=== PATIENT | female | born 1945 | race African-American/Black ===

== ENCOUNTER 2016-10-17 16:13 | Observation (INO) | payer MEDICARE, OTHER ==
--- NOTE | ~2016-10-17 | HP ---
History And Physical [facility] [id number] [place]. [address] NAME: KYLIE MERCER : 43 STATUS : ADM Jayla PAT#: [id number] AGE: 71 ADM/REG DATE : 10/17/16 MR#: [id number] REPORT SERV DATE: 10/18/16 DICTATED BY: DATE: REPORT STATUS : Draft TRANSCRIBED BY: MODL DATE: 10/18/16 DATE OF ADMISSION: 10/17/2016 She also sees a counselor at law that she does not know the name of. CHIEF COMPLAINT: Neck and back pain along with palpitations. HISTORY OF PRESENT ILLNESS: This is a very pleasant 71-year-old female without a history of coronary artery disease, who reported to have bilateral upper arm pain that radiated to her neck and to her back. She also felt like her heart was "fluttering" and she also had some nausea and dizziness during her event. She denies having any chest pain or pressure, shortness of breath, diaphoresis, or any syncopal episodes during her event. She reports to have a nonproductive cough that is evident on the room. No other complaints. Today, she has no complaints and feels like all of her events have resolved. Currently, no chest pain or pressure. No shortness of breath, nausea, vomiting, or diaphoresis. The patient denies any personal history of myocardial infarction, stroke, DVTs, or pulmonary embolus. The patient denies any recent illness, fever, or chills. No syncopal episodes. The patient denies PND or orthopnea. PAST MEDICAL HISTORY: 1. Acute colitis. 2. Hypertension. 3. Hyperlipidemia. 4. Thrombocytosis. 5. COPD. 6. Iron deficiency anemia. 7. Gastritis. 8. Diverticulosis. 9. Glaucoma. SURGICAL HISTORY: Hysterectomy. 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 She is and she has three children. She smokes about half a pack per day and has been smoking half a pack per day intermittently for thirty five years. Denies any alcohol use. Denies any illicit drug use. FAMILY HISTORY: She denies her parents having any cardiac history. She does report that her mother had pancreatic cancer and at the age of 85, and her father having liver cancer and in his 60s. REVIEW OF SYSTEMS: A 14-point review of systems was performed significant for HPI, no other contributory diagnoses are identified. History And Physical [address] [place]. [address] NAME: KYLIE MERCER : 43 STATUS : ADM Jayla PAT#: [id number] AGE: 71 ADM/REG DATE : 10/17/16 MR#: [id number] REPORT SERV DATE: 10/18/16 DICTATED BY: DATE: REPORT STATUS : Draft TRANSCRIBED BY: MODL DATE: 10/18/16 ALLERGIES: NO KNOWN ALLERGIES. HOME MEDICATIONS: Elavil 10 mg p.o. at bedtime, aspirin 81 p.o. every morning, Lipitor 20 p.o. at bedtime, ferrous sulfate 325 after breakfast, Hydrea 500 mg p.o. every 48 hours, Hydrea 1000 mg p.o. every 48 hours, Cozaar 100 mg p.o. with lunch, Maxzide 25 one tablet p.o. every morning. I have consulted the registered nurse to call the patient's primary care physician and confirm and verify the patient's home medication list due to the patient stating she is unsure if that is exactly what she takes at this time. PHYSICAL EXAMINATION: VITAL SIGNS: Blood pressure 145/65, heart rate 56, temperature 98.1, respirations 18, O2 saturation 96% on room air. GENERAL: Cooperative, in no apparent distress. HEENT: Head normocephalic, anicteric. Normal EOM. PERRLA. No xanthelasma. Nares patent. Moist mucous membranes. NECK: Trachea midline. No thyromegaly, JVD or bruits. RESPIRATORY: Clear to auscultation bilaterally anterior and posterior. Respirations even and unlabored. No wheezes, rhonchi or crackles. CARDIOVASCULAR: Regular rate and rhythm. No murmur, rub or gallop appreciated. No chest wall tenderness to palpation. ABDOMEN: Soft, nontender, nondistended, normal bowel sounds auscultated throughout. No masses or organomegaly. EXTREMITIES: No peripheral edema. DP/PT and radial pulses palpable bilaterally. No clubbing or cyanosis. SKIN: Warm, dry and intact. Normal turgor. No pallor or cyanosis. NEURO/PSYCH: Alert, oriented x3 with no acute distress. Affect appropriate to current situation. LABORATORY DATA: Troponins x2 have been less than 0.02. Sodium 143, potassium 3.5, BUN 9, creatinine 0.87, GFR 77, glucose 118, calcium 9.0, magnesium 2.1. White blood cells 6.2, hemoglobin 11.1, hematocrit 33.4, platelets of 567. INR 1.1. Chest x-ray PA and lateral shows no acute processes, the lungs are clear. No infiltrate or effusion. EKG done on 10/18/2016 at 0320 hours shows sinus bradycardia, 56 with nonspecific T-wave abnormalities. compliance monitor shows sinus rhythm. No ectopy or any arrhythmias noted. ASSESSMENT AND PLAN: 1. Palpitations. No arrhythmia or ectopy noted on patient's EKGs x2 or school lunch monitor. The patient's EKG shows sinus paced sinus rhythm. Troponins x2 have been less than 0.02. The patient's cardiac risk factors include age, hypertension, hyperlipidemia, and tobacco use. The patient has been observed in the CPOU to rule out myocardial infarction with serial enzymes and serial EKGs. We will keep the patient n.p.o. and plan an MPI today due to the patient's cardiac risk factors and symptoms of arm pain radiating to her neck and then to her back. If the stress test is showing low risk or no ischemia, the RN may discharge the patient home. If anything suggestive of ischemia, Cardiology referral will be initiated. The patient will be asked to follow History And Physical [address] [place]. [address] NAME: KYLIE MERCER : 43 STATUS : ADM Jayla PAT#: [id number] AGE: 71 ADM/REG DATE : 10/17/16 MR#: [id number] REPORT SERV DATE: 10/18/16 DICTATED BY: DATE: REPORT STATUS : Draft TRANSCRIBED BY: MODL DATE: 10/18/16 up with her PCP in one or two weeks with all the studies being sent to that office. 2. Back, neck, and arm pain. The patient has denied any chest pain or chest pressure with the symptoms; however, due to her arm pain starting first radiating to her neck and then to her back, we will follow up with a stress test today. The patient denies any numbness or tingling or any other pain currently. 3. Hypertension, appears to be stable, 140s over 60s. The home medication list has been addressed; however, to verify that all of the medications and the dosage is correct, we will get the RN to verify the patient's home medications under PCP. The patient is unsure of some of the names of the medication and the dosages. 4. Hyperlipidemia. The patient is on statin, we will continue that. 5. Thrombocytosis and iron deficiency anemia. The patient will follow up with her counselor at law who she cannot remember the name of, but does have a followup appointment with. 6. Tobacco abuse. We have discussed smoking cessation. The patient reports, she will attempt to stop smoking. EKS/MODL Kiana Jones APN / [id number] CC: GATO Feliciano M.D.
[2016-10-17 13:02] LABS: BASOPHILS 1.8 %; BASOPHILS ABSOLUTE 0.11 10/3/uL (0.0-0.16); EOSINOPHILS 3.9 %; EOSINOPHILS ABSOLUTE 0.24 10/3/uL (0.0-0.53); ER CBC TAT 0 Hrs 08 Mins; HEMATOCRIT 33.4 % (36.0-48.0); HEMOGLOBIN 11.1 g/dL (12.0-16.0); IMMATURE GRANULOCYTES 0.2 %; IMMATURE GRANULOCYTES ABSOLUTE 0.01 10/3/uL (0.0-0.11); LYMPHOCYTES 36.4 %; LYMPHOCYTES ABSOLUTE 2.25 10/3/uL (0.67-4.30); MANUAL DIFF NO %; MEAN CORPUS HGB CONC 33.2 g/dL (32.0-36.0); MEAN CORPUSCULAR HEMOGLOB 33.3 pg (26.0-34.0); MEAN CORPUSCULAR VOLUME 100.3 fL (80-100); MEAN PLATELET VOLUME 9.3 fL (9.2-13.0); MONOCYTES 4.9 %; NEUTROPHILS 52.8 %; NEUTROPHILS ABSOLUTE 3.27 10/3/uL (2.02-8.40); PLATELET COUNT 567 10/3/uL (150-400); RBC DISTRIBUTION WIDTH 13.8 % (12.0-16.0); RED CELL COUNT 3.33 10/6/uL (4.0-5.6); WHITE BLOOD CELLS 6.2 10/3/uL (4.5-10.5)
[2016-10-17 13:10] LABS: INTERNATIONAL NORMAL RATI 1.1 UNITS (-); PARTIAL THROMBO TIME 30.8 SEC (22.5-37.2); PROTIME (NOT ORD) 14.2 SEC (12.0-14.5)
[2016-10-17 13:21] LABS: BUN (BLOOD UREA NITROGEN) 9 MG/DL (6-23); CHEST PAIN PROFILE TAT 0 Hrs 27 Mins; CHLORIDE, SERUM 110 MMOL/L (96-112); CO2 (CARBON DIOXIDE) 28 MMOL/L (24-34); CREATININE 0.87 MG/DL (0.55-1.02); GFR AFRICAN AMERICAN 77 ML/MIN (>=60); GFR NON AFRICAN AMERICAN 67 ML/MIN (>=60); GLUCOSE, SERUM 118 MG/DL (60-99); POTASSIUM, SERUM 3.5 MMOL/L (3.5-5.3); SODIUM, SERUM 143 MMOL/L (135-148); TROPONIN I <0.02 NG/ML (<0.05)
[~2016-10-17 16:13] MED LIST: AMIT10 PO; ASAB PO; CIP5 PO; COREG25 PO; COZAAR100 MG PO; CYPROHEPTAD4 MG PO; FERROUS SULF325 M1 PO; FLAG500TAB PO; HYDREA PO; IRON325 MG PO; LIPITOR20 PO; MAX25 PO; NORV10 PO
== END 2016-10-18 14:54 | disposition home or self-care (01) ==
LOC: ER 16:13 → CDU1 17:26
PROVIDERS: Hospitalist
DX: R00.2 Palpitations (principal); M54.9 Dorsalgia, unspecified; M54.2 Cervicalgia; I10 Essential (primary) hypertension; E78.5 Hyperlipidemia, unspecified; D47.3 Essential (hemorrhagic) thrombocythemia; F17.210 Nicotine dependence, cigarettes, uncomplicated; J44.9 Chronic obstructive pulmonary disease, unspecified; Z90.710 Acquired absence of both cervix and uterus
CPT/HCPCS: 71020; 78452; 80048; 83735; 84484; 85025; 85610; 85730; 93005; 93017; 99284; A9270-GY; A9502; G0378